=== PATIENT | male | born 1985 | race African-American/Black ===

== ENCOUNTER 2018-05-23 18:24 | Emergency (ER) | payer MEDICAID ==
[~2018-05-23] VITALS: Ht 167.6 cm; Wt 68.0 kg
[2018-05-23] MEDS ORDERED: HYDROCODONE/ACETAMINOPHEN 5/325MG TABLET PO ONE (21:15)
[2018-05-23 23:22] LABS: CHLORIDE 101 mEq/L (98-107)
[2018-05-24] MEDS ORDERED: IOHEXOL-300 100 ML BOTTLE ONE (00:58)
[2018-05-24 01:37] VITALS: BP 138/87
== END 2018-05-24 01:39 | disposition home or self-care (01) ==
LOC: ER 19:49
DX: K61.1 Rectal abscess (principal)
CPT/HCPCS: 36415; 72193; 80048; 99285; Q9967; Z7610